=== PATIENT | female | born 1950 | race Caucasian/White ===

== ENCOUNTER 2025-04-19 00:13 | Emergency (ER) | payer OTHER, MEDICAID ==
[~2025-04-19] VITALS: Ht 170.2 cm; Wt 59.0 kg
[~2025-04-19 00:13] MED LIST: ATE50T PO; CYCL15CA PO; ETH1T PO; HYDR25T PO; LOSA-534 PO; MELO15TA29 PO; TERB250T92 PO; TRAZ-227 PO
--- NOTE | 2025-04-19 00:26 | ED.PDOC ---
History of Present Illness HPI Comments 74-year-old female brought in by EMS presents with a chief complaint of weakness x 6 hours. Per patient, she had a mechanical fall and couldn't get herself up from the floor. Patient is unsure if she lost consciousness or not. Patient mentions that she was too weak to get up and was on the floor for about 5/6 hours. Time Seen by MD: 00:16 Reviewed Notes: Medications, Allergies Allergies: Coded Allergies: NO KNOWN ALLERGIES (Unverified , 11/09/13) Home Meds Reported Medications Hydroxyzine Pamoate (VISTARIL ORAL) 25 Mg Cp, 25 MG PO Q6HP, CP 11/09/13 Meloxicam (Meloxicam) 15 Mg Tab, 15 MG PO AC, TAB 11/09/13 Terbinafine Hcl (Terbinafine Hcl) 250 Mg Tab, 250 MG PO DAILY, TAB 11/09/13 Trazodone Hcl (Trazodone Hcl) 50 Mg Tab, 50 MG PO DAILY, TAB 11/09/13 Losartan Potassium (Losartan Potassium) 50 Mg Tab, 50 MG PO DAILY, TAB 11/09/13 Atenolol (TENORMIN TABLET) 50 Mg Tb, 25 MG PO DAILY 11/09/13 Estradiol (ESTRACE TABLET) 1 Mg Tb, 1 MG PO DAILY 11/09/13 Cyclobenzaprine Hcl (CYCLOBENZAPRINE HCL ER) 15 Mg Cap, 10 MG PO TID, CAP 11/09/13 Information Source: Patient, Emergency Med Personnel Mode of Arrival: EMS Severity: Moderate Timing: Hours Duration: Since onset Prehospital treatment: [employer] Past Medical History PAST MEDICAL HISTORY: HTN Surgical History: Cholecystectomy, Hernia Repair, Hysterectomy [employer]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 History Family History Family History: Reviewed,noncontributory to illness, No family hx of Stroke Social History Smoker: Non-Smoker Alcohol: Denies ETOH Use Drugs: Denies Drug Use Lives In: Home Constitutional: reports: weakness; denies: chills, diaphoresis, fatigue, fever, malaise, sweats, others EENTM: denies: blurred vision, double vision, ear bleeding, ear discharge, ear drainage, ear pain, ear ringing, eye pain, eye redness, hearing loss, mouth pain, mouth swelling, nasal discharge, nose bleeding, nose congestion, nose pain, photophobia, tearing, throat pain, throat swelling, voice changes, others Respiratory: denies: cough, hemoptysis, orthopnea, SOB at rest, shortness of breath, SOB with excertion, stridor, wheezing, others Cardiovascular: denies: chest pain, dizzy spells, diaphoresis, Dyspnea on exertion, edema, irregular heart beat, left arm pain, lightheadedness, palpitations, PND, syncope, others Gastrointestinal: denies: abdomen distended, abdominal pain, blood streaked bowels, constipated, diarrhea, dysphagia, difficulty swallowing, hematemesis, melena, nausea, poor appetite, poor fluid intake, rectal bleeding, rectal pain, vomiting, others Genitourinary: denies: abnormal vagina bleeding, burning, dyspareunia, dysuria, flank pain, frequency, hematuria, incontinence, pain, , vagina discharge, urgency, others Neurological: denies: dizziness, fainting, headache, left sided numbness, left sided weakness, numbness, paresthesia, pre-existing deficit, right sided numbness, right sided weakness, seizure, speech problems, tingling, tremors, weakness, others Musculoskeletal: denies: back pain, gout, joint pain, joint swelling, muscle pain, muscle stiffness, neck pain, others Integumetry: denies: bruises, change in color, change in hair/nails, dryness, laceration, lesions, lumps, rash, wounds, others Allergic/Immunocompromised: denies: Difficulty Healing, Frequent Infections, Hives, Itching, others Hematologic/Lymphatic: denies: anemia, blood clots, easy bleeding, easy bruising, swollen glands, others Endocrine: denies: excessive hunger, excessive sweating, excessive thirst, excessive urination, flushing, intolerance to cold, intolerance to heat, unexplained weight gain, unexplained weight loss, others Psychiatric: denies: anxiety, bipolar disorder, depression, hopeless, panic disorder, schizophrenia, sleepless, suicidal, others All Other Systems: Reviewed and Negative Physical Exam General Appearance: No Apparent Distress, Normal HEENT: Normal ENT Inspection, Pharynx Normal, TMs Normal Neck: Full Range of Motion, Non-Tender, Normal, Normal Inspection Respiratory: Chest Non-Tender, Lungs Clear, No Accessory Muscle Use, No Respiratory Distress, Normal Breath Sounds Cardiovascular: No Edema, No JVD, No Murmur, No Gallop, Normal Peripheral Pulses, Regular Rate/Rhythm Breast Exam: Deferred Gastrointestinal: No Organomegaly, Non Tender, No Pulsatile Mass, Normal Bowel Sounds, Soft Genitalia: Deferred Pelvic: Deferred Rectal: Deferred Extremities: No calf tenderness, Normal capillary refill, Normal inspection, Normal range of motion, Non-tender, No pedal edema Musculoskeletal : Apperance: Normal Neurologic: Alert, customer experience intern II-XII nml as Tested, No Motor Deficits, Normal Affect, Normal Mood, No Sensory Deficits Cerebellar Function: Normal Reflexes: Normal Skin: Dry, Normal Color, Warm Lymphatic: No Adenopathy Was a procedure done? Was a procedure done?: No Time of 1ST Reevaluation: 00:46 Reevaluation 1ST: Unchanged Patient Education/Counseling: Diagnosis, Treatment Family Education/Counseling: No Family Present Critical Care Note Critical Care Time?: No Stability Stability form required: No Heart Score Heart Score: Heart Score Response (Comments) Value History N/A 0 EKG N/A 0 Age N/A 0 Risk Factors N/A 0 Troponin N/A 0 Total 0 I personally scribed for KERMIT MCGARRY MD ([email or web address]) on 04/19/25 at 00:26. Electronically submitted by Stefano Damon ([email or web address]). KERMIT MCGARRY MD April 19, 2025 00:26
[2025-04-19 00:38] LABS: Basophils # (auto) 0 10 ^3/uL (0-0.2); Basophils % (auto) 0.1 % (0.0-2.0); Eosinophils # (auto) 0 10 ^3/uL (0-0.8); Hematocrit 47.6 % (36.0-46.0); Hemoglobin 16.1 g/dL (12.2-16.2); Lymphocytes # (auto) 0.6 10 ^3/uL (0.4-5.4); Lymphocytes % (auto) 4.9 % (10.0-50.0); Mean Corpuscular Hemoglobin 33.9 pg (28.0-32.0); Mean Corpuscular Hgb Conc. 33.8 g/dL (32.0-36.0); Mean Corpuscular Volume 100.3 fL (80.0-100.0); Monocytes # (auto) 0.6 10 ^3/uL (0-1.3); Neutrophils # (auto) 11.3 10 ^3/uL (1.6-8.6); Platelet Count (auto) 264 10^3/uL (140-450); Red Blood Cells 4.74 10^6/uL (4.0-5.20); Red Cell Distribution Width 12.5 % (11.8-14.3); White Blood Cell 12.6 10^3/uL (4.4-10.8)
[2025-04-19 00:51] LABS: Chloride 101 mmol/L (98-107); Potassium 4.2 mmol/L (3.5-5.1); Sodium 139 mmol/L (136-145)
[2025-04-19 00:52] LABS: Anion Gap 10 (5-15); Carbon Dioxide 28 mmol/L (20-31)
[2025-04-19 00:53] LABS: Calcium 9.6 mg/dL (8.7-10.4)
[2025-04-19 00:57] LABS: BUN/Creatinine Ratio 20.3 (10.0-20.0); Blood Urea Nitrogen 13 mg/dL (9-23)
[2025-04-19 00:59] LABS: Glucose 141 mg/dL (74-106)
[2025-04-19 01:00] LABS: Creatine Kinase IFCC 776 U/L (34-145)
[2025-04-19 01:32] LABS: Urine Bacteria None Seen /hpf (None Seen)
[2025-04-19 01:59] LABS: Urine Blood Negative /uL (Negative); Urine Clarity Clear (Clear); Urine Color Light-Yellow (Yellow); Urine Protein, UAD Negative (Negative); Urine Specific Gravity 1.017 (1.001-1.035); Urine Squamous Epithelial Cell FEW /hpf (<5); Urine Urobilinogen Normal (Negative); Urine WBC 7 /HPF (0-5)
--- NOTE | 2025-04-19 05:43 | DVH ---
EXAM: CT HEAD WITHOUT CONTRAST INDICATION: syncope TECHNIQUE: CT of the head without intravenous contrast. Radiation Dose : 1. Head: CT Dose: CTDI volume is 52.96 mGy. Dose-length product is 851.56 mGy*cm The dose indicators for CT are the volume Computed Tomography (CT) Dose Index (CTDIvol) and the Dose Length Product (DLP), and are measured in units of mGy and mGy-cm, respectively. These indicators are not patient dose, but values generated from the CT scanner acquisition factors. The report includes radiation exposure data for exposures received during this examination. COMPARISON: None FINDINGS: There is no evidence of acute intracranial hemorrhage, extra-axial collection, mass effect, midline s hift, herniation or hydrocephalus. 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 Patchy periventricular and subcortical white matter hypoattenuation is nonspecific but may be related to small vessel ischemic disease. The visualized paranasal sinuses and mastoid air cells are clear. The surrounding soft tissues and osseous structures are unremarkable. 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 No acute intracranial hemorrhage.
--- NOTE | 2025-04-19 05:50 | DVH ---
EXAM: XY CHEST PORTABLE Indication: syncope Technique: Single frontal view of the chest was obtained Comparison: None FINDINGS: Lines and Tubes: None Lungs: Right upper lung opacity which may represent atelectasis or pneumonia. Pleura: No effusion. No pneumothorax. Cardiomediastinal contours: Unremarkable Bones: No acute osseous abnormality. IMPRESSION: Right upper lung opacity which may represent atelectasis or pneumonia.
[2025-04-19] MEDS: SODIUM CHLORIDE 0.9% 1,000 ML IV ONE (06:42)
[2025-04-19] MEDS: AZITHROMYCIN 250 MG TAB PO ONE (07:18)
[2025-04-19] MEDS: CEFEPIME 2GM/50ML NS 50 ML IV ONE (07:19)
[2025-04-19] MEDS: AZITHROMYCIN 500MG/ 250ML 250 ML IV ONE (07:48)
[2025-04-19 08:26] VITALS: PULSE 77; RESP 20; O2SAT 95
[2025-04-19 08:47] VITALS: BP 150/66; PULSE 77; RESP 20; TEMP 98; O2SAT 96
--- NOTE | 2025-04-20 13:34 | ECG ---
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
== END 2025-04-19 08:43 | disposition short-term general hospital (02) ==
LOC: ER 00:13 → EDBD 00:13 → ER 08:43
DX: R53.1 Weakness (principal); R55 Syncope and collapse; I10 Essential (primary) hypertension; Z79.899 Other long term (current) drug therapy; Z90.49 Acquired absence of other specified parts of digestive tract; Z90.710 Acquired absence of both cervix and uterus; Z98.890 Other specified postprocedural states; W18.39XA Other fall on same level, initial encounter; Y93.89 Activity, other specified; Y92.89 Other specified places as the place of occurrence of the external cause; Y99.8 Other external cause status
CPT/HCPCS: 36415; 70450; 71045; 80048; 81001; 82550; 82947; 83605; 84484; 85025; 87040; 93005; 96361; 96365; 96366; 96368; 99285; J0456; J0692; J7030; 82962

== ENCOUNTER 2025-06-03 20:23 | Emergency (ER) | payer OTHER, MEDICAID ==
[~2025-06-03] VITALS: Ht 167.6 cm; Wt 50.0 kg
[2025-06-03 21:12] VITALS: PULSE 89; RESP 36; O2SAT 95
--- NOTE | 2025-06-03 21:12 | ED.PDOC ---
Musculoskeletal HPI Comments This is a 74 year old female JYOTHIA presenting to the ED with chief complaint of altered mental status and bilateral knee wounds. EMS reports that the patient lives alone and was checked on by neighbors marjorie when they had found her leaning against her bed on her knees, confused and unable to get up. EMS reports that when they arrived on scene, patient was hypertensive with a systolic pressure in the 170s, is A/O x3 to herself, location, and time, but patient was unable recall how she ended up in her current position and was unable to stand or ambulate. EMS states patient has apparent deep abrasions to the bilateral knees that were not present 2 days ago when the same EMS crew had transported t he patient to our ED for similar complaints. EMS notes patient is unable to care for herself at home and daughter had reported over the phone that the patient is living alone and she is over 3 hours away. Patient has history of a UTI diagnosis 2 days ago in the ED, but was transferred to [place] and apparently discharged back home. Patient denies being on any antibiotics at this time, but states she has been taking her daily medication as directed. Patient denies any chest pain, SOB, abdominal pain, fever, chills, dizziness, syncope, or injury. 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, Medications, Allergies Allergies: Coded Allergies: Hydrocodone (Verified Allergy, Unknown, 04/19/25) Home Meds Reported Medications Hydroxyzine Pamoate (VISTARIL ORAL) 25 Mg Cp, 25 MG PO Q6HP, CP 11/09/13 Meloxicam (Meloxicam) 15 Mg Tab, 15 MG PO AC, TAB 11/09/13 Terbinafine Hcl (Terbinafine Hcl) 250 Mg Tab, 250 MG PO DAILY, TAB 11/09/13 Trazodone Hcl (Trazodone Hcl) 50 Mg Tab, 50 MG PO DAILY, TAB 11/09/13 Losartan Potassium (Losartan Potassium) 50 Mg Tab, 50 MG PO DAILY, TAB 11/09/13 Atenolol (TENORMIN TABLET) 50 Mg Tb, 25 MG PO DAILY 11/09/13 Estradiol (ESTRACE TABLET) 1 Mg Tb, 1 MG PO DAILY 11/09/13 Cyclobenzaprine Hcl (CYCLOBENZAPRINE HCL ER) 15 Mg Cap, 10 MG PO TID, CAP 12/16/13 Information Source: Patient, Emergency Med Personnel Mode of Arrival: EMS Location: Bilateral Extremity Location: Knee Timing: Days Prehospital treatment: None Severity: Severe Able to Move Extremity: No Bear Weight: No Pain: Severe Mechanism: Spontaneous Circumstances: Preceding Wound Onset of Symptoms: Spontaneous Symptoms: Swelling, Pain, Erythema DVT Risk Factors: NONE Last Tetanus: Unknown Past Medical History PAST MEDICAL HISTORY: High Lipids, HTN, Thyroid Past Medical History (Other): Brain aneurysm Surgical History: Cholecystectomy, Hernia Repair, Hysterectomy BREAKFAST HOSTESS History: No Pertinent BREAKFAST HOSTESS History Family History Family History: Reviewed,noncontributory to illness, No family hx of Stroke Social History Smoker: Non-Smoker Alcohol: Denies ETOH Use Drugs: Denies Drug Use Lives In: Home Constitutional: denies: chills, diaphoresis, fatigue, fever, malaise, sweats, weakness, others EENTM: denies: blurred vision, double vision, ear bleeding, ear discharge, ear drainage, ear pain, ear ringing, eye pain, eye redness, hearing loss, mouth pain, mouth swelling, nasal discharge, nose bleeding, nose congestion, nose pain, photophobia, tearing, throat pain, throat swelling, voice changes, others Respiratory: denies: cough, hemoptysis, orthopnea, SOB at rest, shortness of breath, SOB with excertion, stridor, wheezing, others Cardiovascular: denies: chest pain, dizzy spells, diaphoresis, Dyspnea on exertion, edema, irregular heart beat, left arm pain, lightheadedness, palpitations, PND, syncope, others Gastrointestinal: denies: abdomen distended, abdominal pain, blood streaked bowels, constipated, diarrhea, dysphagia, difficulty swallowing, hematemesis, melena, nausea, poor appetite, poor fluid intake, rectal bleeding, rectal pain, vomiting, others Genitourinary: denies: abnormal vagina bleeding, burning, dyspareunia, dysuria, flank pain, frequency, hematuria, incontinence, pain, , vagina discharge, urgency, others Neurological: denies: dizziness, fainting, headache, left sided numbness, left sided weakness, numbness, paresthesia, pre-existing deficit, right sided numbness, right sided weakness, seizure, speech problems, tingling, tremors, weakness, others Musculoskeletal: reports: others (Inability to ambulate); denies: back pain, gout, joint pain, joint swelling, muscle pain, muscle stiffness, neck pain Integumetry: reports: wounds (Bilateral knees); denies: bruises, change in color, change in hair/nails, dryness, laceration, lesions, lumps, rash, others Allergic/Immunocompromised: denies: Difficulty Healing, Frequent Infections, Hives, Itching, others Hematologic/Lymphatic: denies: anemia, blood clots, easy bleeding, easy bruising, swollen glands, others Endocrine: denies: excessive hunger, excessive sweating, excessive thirst, excessive urination, flushing, intolerance to cold, intolerance to heat, unexplained weight gain, unexplained weight loss, others Psychiatric: denies: anxiety, bipolar disorder, depression, hopeless, panic disorder, schizophrenia, sleepless, suicidal, others All Other Systems: Reviewed and Negative Physical Exam General Appearance: Mild Distress HEENT: Other (Pupils and face symmetric. Dry mucous membranes.) Neck: Full Range of Motion, Normal Inspection Respiratory: Lungs Clear, No Accessory Muscle Use, No Respiratory Distress, Normal Breath Sounds Cardiovascular: No JVD, Tachycardia Breast Exam: Deferred Gastrointestinal: Non Tender, Soft Genitalia: Deferred Pelvic: Deferred Rectal: Deferred Extremities: Leg edema, Pedal edema, Swelling, Tender, Other (Bilateral knee infrapatellar large abrasions that appear dry with mild surrounding erythema and soft tissue tenderness. No fluctuance or discharge.) Neurologic: Alert (Oriented to person, place and time. Can not recall recent events.), Other (Moves all extremities.) Cerebellar Function: NOT DONE Reflexes: NOT DONE Skin: Dry, Warm, Wounds (Bilateral knee approximate 4 x 4 cm dry abrasions/skin tears erythema and tenderness.) Lymphatic: NOT DONE Was a procedure done? Was a procedure done?: No EKG EKG : Comments Sinus rhythm sinus arrhythmia, rate 97, normal intervals, normal axis, possible old anteroseptal infarct, nonspecific T change Differential Diagnosis EXT Differential Diagnosis: Cellulitis, Septic Other Differential Diagnosis CVA, TIA, sepsis, UTI, rhabdomyolysis, dehydration, renal failure, electrolyte imbalance, arrhythmia, WI, among others X-Ray, Labs, Meds, VS Vital Signs Date Time Temp Pulse Resp B/P (MAP) Pulse Ox O2 Delivery O2 Flow Rate FiO2 06/04/25 00:00 76 710/25 22:04 79 24 153/72 06/03/25 22:00 78 28 153/72 (99) 94 06/03/25 21:15 89 36 162/76 (104) 95 06/03/25 20:27 97 06/03/25 20:23 98.6 102 17 173/109 (130) 98 98.6 Lab Test 06/03/25 23:39 06/03/25 23:13 06/03/25 22:00 06/03/25 21:14 Range/Units Urine Color Yellow Yellow Urine Clarity Clear Clear Urine pH 5.0 5.0-9.0 Urine Specific [place] 1.021 1.001-1.035 Urine Protein Trace H Negative Urine Ketones Trace Negative Urine Blood Negative Negative /uL Urine Nitrite Negative Negative Urine Bilirubin Negative Negative Urine Urobilinogen Normal Negative mg/dL Urine Leukocyte Esterase Trace Negative /uL Urine RBC None seen 0 - 4 /hpf Urine Microscopic WBC 5 0-5 /HPF Urine Squamous Epithelial Cells Few <5 /hpf Urine Bacteria Few H None Seen /hpf Urine Hyaline Casts Few 0 - 2 /lpf Urine Granular Casts Few 0 /lpf Urine Mucus Few None Seen Urine Glucose Normal Normal mg/dL Urine Opiates Screen Neg NEGATIVE Urine Fentanyl Screen Neg NEGATIVE Urine Barbiturates Screen Neg NEGATIVE Urine Phencyclidine Screen Neg NEGATIVE Urine Amphetamines Screen Neg NEGATIVE Urine Benzodiazepines Screen Neg NEGATIVE Urine Cocaine Screen Neg NEGATIVE Urine Cannabinoids Screen Neg NEGATIVE Lactic Acid Level 1.8 2.6 *H 0.4-2.0 mmol/L Troponin I High Sensitivity 410 *H 400 *H </=34 ng/L White Blood Count 17.4 H 4.4-10.8 10^3/uL Red Blood Count 4.65 4.0-5.20 10^6/uL Hemoglobin 15.4 12.2-16.2 g/dL Hematocrit 45.2 36.0-46.0 % Mean Corpuscular Volume 97.2 80.0-100.0 fL Mean Corpuscular Hemoglobin 33.2 H 28.0-32.0 pg Mean Corpuscular Hemoglobin Concent 34.1 32.0-36.0 g/dL Red Cell Distribution Width 12.8 11.8-14.3 % Platelet Count 303 140-450 10^3/uL Mean Platelet Volume 9.1 6.9-10.8 fL Neutrophils (%) (Auto) 88.4 H 37.0-80.0 % Lymphocytes (%) (Auto) 3.9 L 10.0-50.0 % Monocytes (%) (Auto) 7.6 0.0-12.0 % Eosinophils (%) (Auto) 0.0 0.0-7.0 % Basophils (%) (Auto) 0.1 0.0-2.0 % Neutrophils # (Auto) 15.4 H 1.6-8.6 10 ^3/uL Lymphocytes # (Auto) 0.7 0.4-5.4 10 ^3/uL Monocytes # (Auto) 1.3 0-1.3 10 ^3/uL Eosinophils # (Auto) 0 0-0.8 10 ^3/uL Basophils # (Auto) 0 0-0.2 10 ^3/uL Nucleated Red Blood Cells 0.0 % Prothrombin Time 11.2 9.3-11.8 sec Prothrombin Time INR 1.06 0.9-1.15 Activated Partial Thromboplast Time 25.4 24.5-34.5 SEC Sodium Level 145 136-145 mmol/L Potassium Level 3.9 3.5-5.1 mmol/L Chloride Level 108 H 98-107 mmol/L Carbon Dioxide Level 20 20-31 mmol/L Anion Gap 17 H 5-15 Blood Urea Nitrogen 54 H 9-23 mg/dL Creatinine 1.91 H 0.550-1.02 mg/dL Glomerular Filtration Rate Calc 27 >90 mL/min BUN/Creatinine Ratio 28.3 H 10.0-20.0 Serum Glucose 192 H 74-106 mg/dL Calcium Level 11.1 H 8.7-10.4 mg/dL Total Bilirubin 0.6 0.2-1.0 mg/dL Aspartate Amino Transferase (AST) 101 H 13-40 U/L Alanine Aminotransferase (ALT) 74 H 7-40 U/L Alkaline Phosphatase 136 H 46-116 U/L Ammonia < 10 L 11-32 umol/L Creatine Kinase 1768 H 34-145 U/L B-Type Natriuretic Peptide 325.27 0-100 pg/mL Total Protein 8.1 5.7-8.2 g/dL Albumin 5.0 H 3.2-4.8 g/dL Plasma/Serum Blood Alcohol < 3.0 <10 mg/dL Current Medications Medications (Trade) Dose Ordered Sig/Guille Route Start Time Stop Time Status Last Admin Morphine Sulfate 4 mg ONCE ONCE IV 06/03/25 21:00 06/03/25 21:07 DC 06/03/25 22:04 Ondansetron HCl (Zofran) 4 mg ONCE ONCE IV 06/03/25 21:00 06/03/25 21:07 DC 06/03/25 22:03 Sodium Chloride 1,000 ml @ 1,000 mls/hr Q1H ONCE IV 06/03/25 21:00 06/03/25 21:59 DC 06/03/25 22:01 Diphtheria/ Tetanus/Acell Pertussis (Boostrix T-Dap) 0.5 ml ONCE ONCE IM 06/03/25 21:00 06/03/25 21:07 DC 06/03/25 22:06 Vancomycin HCl 200 ml @ 200 mls/hr ONCE ONCE IV 06/03/25 21:00 06/03/25 21:59 DC 06/03/25 22:01 Cefepime HCl 50 ml @ 12.5 mls/hr Q8HR IV 06/03/25 22:00 06/04/25 00:03 Aspirin 325 mg ONCE ONCE PO 06/03/25 23:45 06/03/25 23:49 DC 06/04/25 00:16 PROCEDURE(s): HWOCT - HEAD WITHOUT CONTRAST REASON: [facility] ORDER NUMBER(s): [id number], ACCESSION NUMBER(s): [id number] CT HEAD WITHOUT CONTRAST INDICATION: al EXAM DATE: 06/03/2025 09:39 PM COMPARISON: CT HEAD WITHOUT CONTRAST on DOS: 04/19/25 RADIATION DOSE: CTDIvol: 50.87 mGy, DLP: 900.9 mGy*cm PROCEDURE: CT scans of the head were obtained from the vertex to the skull base. Sagittal and coronal reconstructions were provided. All CT scans at this medical facility are performed using dose modulation techniques as appropriate to a performed exam including the following: Automated exposure control was utilized; adjustment of the MA and/or KV according to patient size; and use of iterative reconstruction technique. FINDINGS: Evaluation is degraded by streak artifact referable a coil in the region of the medial right temporal lobe/ right internal carotid artery. Correlation with procedural history is suggested. No acute territorial infarct, intracranial hemorrhage, or mass effect. There is tissue loss with gliosis / encephalomalacia within the right temporal, parietal, and to a lesser extent within the right occipital lobe suggesting chronic infarct. There is ex vacuo dilatation of the right lateral ventricle. There are global involutional changes with compensatory prominence of the ventricles and sulci. Patchy periventricular and subcortical white matter hypoattenuation is nonspecific but may be related to small vessel ischemic disease. There is low- attenuation within the left frontal lobe which may be referable to a prior bobbi hole. The orbits are normal. The paranasal sinuses and mastoid air cells are clear. The osseous structures are unremarkable. IMPRESSION: 1. No acute territorial infarct, intracranial hemorrhage, or mass effect. 2. Age-related involutional changes. Chronic ischemic changes as detailed. EDURE(s): CXRP - CHEST PORTABLE REASON: aloc ORDER NUMBER(s): [id number], ACCESSION NUMBER(s): [id number] EXAM: XY CHEST PORTABLE TECHNIQUE: Single frontal chest radiograph CLINICAL HISTORY: aloc COMPARISON: XY CHEST PORTABLE on DOS: 04/19/25 Findings/Impression: Frontal chest radiograph demonstrates no acute osseous or superficial soft tissue abnormalities. The trachea is midline. The cardiac silhouette and mediastinum are within normal limits. No pneumothorax, pleural effusions, or consolidations. EDURE(s): LKNE3 - L KNEE 3V XRAY REASON: abrasion, pain, fall ORDER NUMBER(s): [id number], ACCESSION NUMBER(s): [id number] CLINICAL INDICATION: abrasion, pain, fall TECHNIQUE: 3 radiographic views of the left knee were obtained. Comparison: None FINDINGS/IMPRESSION: Is mild narrowing of the lateral compartment of the left knee with increased sclerosis of the lateral tibial plateau. Suggesting a change in the weight- bearing possibly due to degenerative changes of the lateral meniscus. There is also narrowing of the patellofemoral joint. EDURE(s): RKN3 - R KNEE 3V XRAY REASON: pain, abrasion, fall ORDER NUMBER(s): [id number], ACCESSION NUMBER(s): [id number] CLINICAL INDICATION: pain, abrasion, fall TECHNIQUE: 3 radiographic views of the right knee. were obtained. Comparison: None FINDINGS/IMPRESSION: Mild narrowing of the lateral compartment of the right knee with chondrocalcinosis. Findings suggest degeneration lateral meniscus. There is also narrowing of the patellofemoral joint. X-Ray, Labs, Meds, VS Comment 74-year-old female with history of hypertension, dyslipidemia, thyroid disease, brain aneurysm and UTI brought in by EMS from home with altered mental status and generalized weakness Initial vitals remarkable for heart rate 102, BP 173/109 Exam remarkable for bilateral knee abrasions and tenderness, orientation x3 and inability to recall recent events Rhythm strip independently interpreted by me: Sinus rhythm with sinus arrhythmia, rate 97, no PVCs Head CT, chest x-ray, bilateral knee x-rays unremarkable for any abnormality of acute significance CBC remarkable for WBC 17.4, CMP remarkable for BUN 54, creatinine 1.91, AST 101, ALT 74, alkaline phos 136. Total CK 1708. BNP 325.27. Serial troponins 400, 410. Lactic 2.6. UA pending Patient treated with the following in the ED: 1 L 0.9 normal saline IV bolus, cefepime 2 g IV, vancomycin 1 g IV, morphine 4 mg IV, Zofran 4 mg IV 30 cc/kilogram IV fluid bolus not administered due to the patient's elevated bl ood pressure and elevated BNP. Aggressive fluid hydration could cause harm. On re-evaluation, patient is sleeping with stable vitals. Plan is to transfer the patient for hydration, IV antibiotics and eventual evaluation for SN[facility] who will arrange for the patient to be transferred back to [place]. Time of 1ST Reevaluation: 22:00 Reevaluation 1ST: Unchanged Time of 2ND Reevaluation: 00:07 Reevaluation 2ND: Improved Patient Education/Counseling: Diagnosis, Treatment Family Education/Counseling: No Family Present Sepsis Sepsis Reasesment Focused Exam Sepsis focused exam: focus exam completed, time: (0010) Orders: Laboratory Tests 06/03/25 21:14: Lactic Acid Level 2.6 06/03/25 23:13: Lactic Acid Level 1.8 Sepsis Date: Jun 03, 2025 Time recognized/suspected: 21:00 Heart Rate >90: Yes New Acute Mental Status Change: Yes IV fluid given: Yes Departure 1 Departure Time of Disposition: 00:00 Impression: Primary Impression: Metabolic encephalopathy Additional Impressions: Rhabdomyolysis Acute kidney injury Abrasion of both knees UTI (urinary tract infection) Sepsis Elevated troponin Disposition: SHORT TERM HOSPITAL Admit to: [facility] Condition: Serious Critical Care Note Critical Care Time?: Yes (55 min-critical care time only) Critical care comment: Critical care time including multiple bedside re-evaluations, review of lab and imaging studies, and discussion of the case with the accepting provider. Patient is high risk for neurologic, metabolic and/or hemodynamic decompensation. Stability Stability form required: No Heart Score Heart Score: Heart Score Response (Comments) Value History N/A 0 EKG N/A 0 Age N/A 0 Risk Factors N/A 0 Troponin N/A 0 Total 0 I personally scribed for ANNELIESE ORDONEZ MD ([email or web address]) on 06/03/25 at 21:12. Electronically submitted by Karel Waite ([email or web address]). ANNELIESE ORDONEZ MD Jun 03, 2025 21:12
[2025-06-03 21:31] LABS: Hematocrit 45.2 % (36.0-46.0); Hemoglobin 15.4 g/dL (12.2-16.2); Mean Corpuscular Hemoglobin 33.2 pg (28.0-32.0); Mean Corpuscular Volume 97.2 fL (80.0-100.0); Nucleated Red Blood Cells % 0.0 %
[2025-06-03 21:45] LABS: INR 1.06 (0.9-1.15); Partial Thromboplastin Time 25.4 SEC (24.5-34.5); Prothrombin Time 11.2 sec (9.3-11.8)
[2025-06-03 21:48] LABS: Anion Gap 17 (5-15); BUN/Creatinine Ratio 28.3 (10.0-20.0); Bilirubin, Total 0.6 mg/dL (0.2-1.0); Carbon Dioxide 20 mmol/L (20-31); Potassium 3.9 mmol/L (3.5-5.1); Total Protein 8.1 g/dL (5.7-8.2)
[2025-06-03 21:49] LABS: Lactic Acid w/Reflex 2.6 mmol/L (0.4-2.0)
--- NOTE | 2025-06-03 21:52 | DVH ---
CLINICAL INDICATION: abrasion, pain, fall TECHNIQUE: 3 radiographic views of the left knee were obtained. Comparison: None FINDINGS/IMPRESSION: Is mild narrowing of the lateral compartment of the left knee with increased sclerosis of the lateral tibial plateau. Suggesting a change in the weight-bearing possibly due to degenerative changes of th e lateral meniscus. There is also narrowing of the patellofemoral joint.
--- NOTE | 2025-06-03 21:53 | DVH ---
CLINICAL INDICATION: pain, abrasion, fall TECHNIQUE: 3 radiographic views of the right knee. were obtained. Comparison: None FINDINGS/IMPRESSION: Mild narrowing of the lateral compartment of the right knee with chondrocalcinosis. Findings suggest degeneration lateral meniscus. There is also narrowing of the patellofemoral joint.
[2025-06-03 21:56] LABS: Blood Urea Nitrogen 54 mg/dL (9-23); Chloride 108 mmol/L (98-107); Glucose 192 mg/dL (74-106); Sodium 145 mmol/L (136-145)
[2025-06-03 21:57] LABS: Alanine Aminotransferase 74 U/L (7-40); Albumin 5.0 g/dL (3.2-4.8); Alkaline Phosphatase 136 U/L (46-116); Calcium 11.1 mg/dL (8.7-10.4)
--- NOTE | 2025-06-03 21:57 | ECG ---
[facility] Test Date: 2025-06-03 Test Time: 20:27:10 Pat Name: THOMAS FERRARA Department: ED Room: Gender: F Director Of Clinical Services: [place] : 1950 Requested By: EMERGENCY EMERGENCY Order Number: [id number] Reading MD: Casey Anderson Measurements Intervals [place] Rate: 97 P: 67 SC: 172 QRS: 76 QRSD: 95 T: 26 QT: 367 QTc: 466 Interpretive Statements Unknown rhythm, irregular rate Borderline ST depression, anterolateral leads Artifact in lead(s) I,II,aVR,aVL and baseline wander in lead(s) V3 Electronically Signed On 06-07-2025 18:34:19 PDT by Casey Anderson Please click the below link to view image of tracing.
--- NOTE | 2025-06-03 21:58 | DVH ---
EXAM: XY CHEST PORTABLE TECHNIQUE: Single frontal chest radiograph CLINICAL HISTORY: aloc COMPARISON: XY CHEST PORTABLE on DOS: 04/19/25 Findings/Impression: Frontal chest radiograph demonstrates no acute osseous or superficial soft tissue abnormalities. The trachea is midline. The cardiac silhouette and mediastinum are within normal limits. No pneumothorax, pleural effusions, or consolidations.
[2025-06-03 21:59] LABS: Creatine Kinase IFCC 1768 U/L (34-145)
[2025-06-03] MEDS: SODIUM CHLORIDE 0.9% 1,000 ML IV ONE (22:01)
[2025-06-03] MEDS: VANCOMYCIN 1GM/200ML PM 200 ML IV ONE (22:01)
[2025-06-03] MEDS: ONDANSETRON HCL 4 MG/2 ML VIAL IV ONE (22:03)
[2025-06-03] MEDS: MORPHINE SULFATE 4 MG/ML SYR/VIAL IV ONE (22:04)
[2025-06-03] MEDS: TETANUS-DIPTH-ACEL PERTUSSIS 0.5ML SYR Tdap IM ONE (22:06)
--- NOTE | 2025-06-03 22:17 | DVH ---
CT HEAD WITHOUT CONTRAST INDICATION: aloc EXAM DATE: 06/03/2025 09:39 PM COMPARISON: CT HEAD WITHOUT CONTRAST on DOS: 04/19/25 RADIATION DOSE: CTDIvol: 50.87 mGy, DLP: 900.9 mGy*cm PROCEDURE: CT scans of the head were obtained from the vertex to the skull base. Sagittal and coronal reconstructions were provided. All CT scans at this medical facility are performed using dose modulation techniques as appropriate t o a performed exam including the following: Automated exposure control was utilized; adjustment of th e MA and/or KV according to patient size; and use of iterative reconstruction technique. FINDINGS: Evaluation is degraded by streak artifact referable a coil in the region of the medial right temporal lobe/ right internal carotid artery. Correlation with procedural history is suggested. No acute territorial infarct, intracranial hemorrhage, or mass effect. There is tissue loss with glio sis / encephalomalacia within the right temporal, parietal, and to a lesser extent within the right o ccipital lobe suggesting chronic infarct. There is ex vacuo dilatation of the right lateral ventricle . There are global involutional changes with compensatory prominence of the ventricles and sulci. Pat shira periventricular and subcortical white matter hypoattenuation is nonspecific but may be related to small vessel ischemic disease. There is low-attenuation within the left frontal lobe which may be re ferable to a prior bobbi hole. The orbits are normal. The paranasal sinuses and mastoid air cells are clear. The osseous structures are unremarkable. IMPRESSION: 1. No acute territorial infarct, intracranial hemorrhage, or mass effect. 2. Age-related involutional changes. Chronic ischemic changes as detailed.
[2025-06-04] MEDS: CEFEPIME 1GM/ 50ML 50 ML IV SCH (00:03)
[2025-06-04 00:09] LABS: Amphetamine Screen, Urine Neg (NEGATIVE); Barbiturate Scree,Urine Neg (NEGATIVE); Benzodiazephine Screen, Urine Neg (NEGATIVE); Cannabinoid Screen, Urine Neg (NEGATIVE); Cocaine Screen, Urine Neg (NEGATIVE); Opiate Scree,Urine Neg (NEGATIVE); Phencyclidine Screen, Urine Neg (NEGATIVE)
[2025-06-04 00:13] LABS: Urine Protein, UAD TRACE (Negative)
[2025-06-04 08:14] VITALS: BP 141/56; TEMP 97.6
[2025-06-04 08:17] VITALS: PULSE 69; PULSE 89; RESP 23; RESP 36; O2SAT 95; O2SAT 97
== END 2025-06-04 08:36 | disposition short-term general hospital (02) ==
LOC: EDBD 20:23 → ER 20:23
DX: S80.211A Abrasion, right knee, initial encounter (principal); S80.212A Abrasion, left knee, initial encounter; A41.9 Sepsis, unspecified organism; G93.41 Metabolic encephalopathy; M62.82 Rhabdomyolysis; N17.9 Acute kidney failure, unspecified; N39.0 Urinary tract infection, site not specified; R79.89 Other specified abnormal findings of blood chemistry; E78.5 Hyperlipidemia, unspecified; I10 Essential (primary) hypertension; X58.XXXA Exposure to other specified factors, initial encounter; Y93.89 Activity, other specified; Y92.89 Other specified places as the place of occurrence of the external cause; Y99.8 Other external cause status; Z98.890 Other specified postprocedural states; Z90.49 Acquired absence of other specified parts of digestive tract; Z88.5 Allergy status to narcotic agent; Z90.710 Acquired absence of both cervix and uterus; Z87.440 Personal history of urinary (tract) infections; Z60.2 Problems related to living alone; Z79.899 Other long term (current) drug therapy
CPT/HCPCS: 36415; 36600; 70450; 71045; 73562; 80053; 80307; 80320; 81001; 82140; 82550; 82805; 83605; 83880; 84484; 85025; 85610; 85730; 87040; 87086; 90471; 90715; 93005; 96365; 96366; 96367; 96375; 99291; J0692; J2270; J2405; J3373; J7030; 96368